=== PATIENT | male | born 1980 | race Two or more races ===

== ENCOUNTER 2019-07-09 17:33 | Emergency (ER) | payer SELFPAY ==
[~2019-07-09] VITALS: Ht 177.8 cm; Wt 114.0 kg
[2019-07-09] MEDS ORDERED: SODIUM CHLORIDE 0.9% 1,000 ML IV ONE (18:47)
[2019-07-09] MEDS ORDERED: HALOPERIDOL LACTATE 5MG/ML VIAL IM ONE (19:00)
[2019-07-09 19:20] LABS: BASOPHILS % 0.4 % (0.0-2.0); EOSINOPHILS % 0.1 % (0.0-5.0); HEMATOCRIT. 53.7 % (42.0-52.0); HEMOGLOBIN. 18.7 g/dL (14.0-18.0); LYMPHOCYTES % 10.4 % (20.0-50.0); MEAN CORPUSCULAR HEMOGLOBIN 30.1 pg (28.0-32.0); MEAN CORPUSCULAR VOLUME 86.4 fL (80.0-94.0); MEAN PLATELET VOLUME 9.2 fl (7.4-10.4); MONOCYTES % 4.1 % (2.0-8.0); PLATELET 276 x1000/uL (130-400); RED BLOOD CELL COUNT 6.22 mill/uL (4.7-6.1)
[2019-07-09 19:27] LABS: CHLORIDE 106 mEq/L (98-107)
[2019-07-09 21:56] VITALS: BP 148/92
== END 2019-07-09 22:10 | disposition home or self-care (01) ==
LOC: ER 17:33
DX: F15.10 Other stimulant abuse, uncomplicated (principal)
CPT/HCPCS: 36415; 80053; 84484; 85025; 93005; 99284; J7030